=== PATIENT | male | born 1950 | race Caucasian/White ===

== ENCOUNTER 2017-01-16 09:38 | Emergency (ER) | payer OTHER ==
[2017-01-16 10:03] LABS: HEMOGLOBIN 12.5 gm/dl (14.0-17.5); RED BLOOD COUNT 3.53 M/UL (4.20-5.50); WHITE BLOOD COUNT 16.9 K/UL (4.5-11.0)
== END 2017-01-16 17:56 ==
LOC: ER1 09:38 → ZEROF 11:05
DX: I46.9 Cardiac arrest, cause unspecified (principal); J44.9 Chronic obstructive pulmonary disease, unspecified; I12.0 Hypertensive chronic kidney disease with stage 5 chronic kidney disease or end stage renal disease; N18.6 End stage renal disease; E87.0 Hyperosmolality and hypernatremia; D72.829 Elevated white blood cell count, unspecified; D64.9 Anemia, unspecified; D69.6 Thrombocytopenia, unspecified; R73.9 Hyperglycemia, unspecified; Z79.52 Long term (current) use of systemic steroids; Z79.891 Long term (current) use of opiate analgesic; Z79.899 Other long term (current) drug therapy
CPT/HCPCS: 36415; 36600; 70450; 71010; 71250; 80053; 81001; 82550; 82553; 82803; 83605; 83874; 84484; 85025; 85610; 85730; 87040; 92950; 93005; 94002; 96361; 96374; 99291; J0171; J1265; J2270; J2543; J7030; J7050